=== PATIENT | female | born 1950 | race Caucasian/White ===

== ENCOUNTER 2020-10-05 12:10 | Inpatient (IN) ==
[2020-10-05] MEDS ORDERED: methylPREDNISolone SOD SUC 125 MG/2 ML VIAL IV STA (12:21)
[2020-10-05] MEDS ORDERED: ALBUTEROL 2.5 MG/3 ML NEB RESP TX STA ×2 (12:21→13:15)
[2020-10-05 12:34] LABS: ABG Base Excess 10.6 MMOL/L (-2.5-2.5); ABG HCO3 34.4 MMOL/L (20-26); ABG PH 7.354 (7.35-7.45); ABG TCO2 34.9 MMOL/L (23-27)
[2020-10-05 12:44] LABS: Basophils % 0.2 % (0.0-0.8); Eosinophils % 0.2 % (0.00-10.9); Hematocrit 42.2 VOL% (35.7-47.0); Hemoglobin 12.8 GM/DL (12.0-16.0); Lymphocytes # 0.4 10*3/uL (1.4-4.0); Lymphocytes % 3.9 % (21.3-54.2); Mean Corpuscular HGB Conc 30.3 GM/DL (32-36); Mean Corpuscular Volume 88.8 FL (87-102); Mean Platelet Volume 9.4 FL (9.6-12.0); Monocytes % 6.9 % (1.7-12.7); Neutrophils % 87.8 % (38.7-73.9); Platelet Count 322 T/CUMM (130-400); Red Blood Count 4.75 MC/CUMM (3.8-5.5); Red Cell Distribution Width 13.3 % (9.3-17.3); White Blood Count 9.6 T/CUMM (4-12)
[2020-10-05 13:01] LABS: Albumin 2.8 G/DL (3.4-5.0); Bilirubin,Total 0.5 MG/DL (0.20-1.00); Calcium 8.9 MG/DL (8.5-10.1); Osmolality,Calculated 269.5 MOS/KG (273-304); Potassium 4.2 MMOL/L (3.5-5.1); Total Protein 5.9 G/DL (6.4-8.2)
[2020-10-05 13:08] LABS: Band Neutrophils 27 % (0-10); Lymphocytes 4 % (20-55); Platelet Estimate Normal; Segmented Neutrophils 59 % (50-85); Total Cells Counted 100
[2020-10-05 13:09] LABS: Anisocytosis 1+
[2020-10-05] MEDS ORDERED: cefTRIAXone 1,000 MG in SODIUM CHLORIDE 0.9% 100 ML IV STA (13:14)
[2020-10-05] MEDS ORDERED: AZITHROMYCIN INJ 500 MG in SODIUM CHLORIDE 0.9% 250 ML IV STA (13:14)
[2020-10-05 14:13] LABS: ABG Base Excess 12.4 MMOL/L (-2.5-2.5); ABG Oxygen Saturation 88.3 % (95-100); ABG PCO2 65.4 MM HG (35-48); ABG PH 7.399 (7.35-7.45); ABG PO2 55.5 MM HG (80-95); ABG TCO2 35.8 MMOL/L (23-27)
[2020-10-05] MEDS ORDERED: ACETAMINOPHEN 325 MG TABLET PO PRN (16:38)
[2020-10-05] MEDS ORDERED: ONDANSETRON 4 MG/2 ML VIAL IV PRN (16:38)
[2020-10-05] MEDS ORDERED: AZITHROMYCIN INJ 500 MG in SODIUM CHLORIDE 0.9% 250 ML IV SCH (17:00)
[2020-10-05] MEDS ORDERED: cefTRIAXone 1,000 MG in SODIUM CHLORIDE 0.9% 100 ML IV SCH (17:00)
[2020-10-05] MEDS: BUDESONIDE 0.5 MG/2 ML NEB RESP TX SCH (19:39)
[2020-10-05] MEDS: DOCUSATE SODIUM 100 MG CAPSULE PO SCH (21:51)
[2020-10-05] MEDS: methylPREDNISolone SOD SUC 40 MG/1 ML VIAL IV SCH (21:52)
[2020-10-06] MEDS: LEVOTHYROXINE 50 MCG TABLET PO SCH (05:39)
[2020-10-06] MEDS: methylPREDNISolone SOD SUC 40 MG/1 ML VIAL IV SCH ×3 (05:39→21:36)
[2020-10-06 06:04] LABS: Basophils % 0.3 % (0.0-0.8); Hematocrit 39.2 VOL% (35.7-47.0); Hemoglobin 12.1 GM/DL (12.0-16.0); Immature Granulocytes Absolute 0.07 #; Lymphocytes # 0.3 10*3/uL (1.4-4.0); Lymphocytes % 4.4 % (21.3-54.2); Mean Corpuscular HGB Conc 30.9 GM/DL (32-36); Mean Corpuscular Volume 87.7 FL (87-102); Mean Platelet Volume 9.6 FL (9.6-12.0); Monocytes % 2.8 % (1.7-12.7); NRBC # 0.02 10*3/uL; Neutrophils % 91.5 % (38.7-73.9); Platelet Count 287 T/CUMM (130-400); Red Blood Count 4.47 MC/CUMM (3.8-5.5); Red Cell Distribution Width 13.2 % (9.3-17.3); White Blood Count 6.9 T/CUMM (4-12)
[2020-10-06 06:41] LABS: Albumin 2.5 G/DL (3.4-5.0); Bilirubin,Total 0.4 MG/DL (0.20-1.00); Calcium 9.3 MG/DL (8.5-10.1); Potassium 3.7 MMOL/L (3.5-5.1); Total Protein 6.2 G/DL (6.4-8.2)
[2020-10-06] MEDS: BUDESONIDE 0.5 MG/2 ML NEB RESP TX SCH ×2 (07:40→19:22)
[2020-10-06 08:00] LABS: Band Neutrophils 6 % (0-10); Hypochromasia 1+; Lymphocytes 7 % (20-55); Nucleated Red Blood Cells 1 (0-5); Platelet Estimate Normal; Segmented Neutrophils 83 % (50-85); Total Cells Counted 100
[2020-10-06] MEDS ORDERED: FUROSEMIDE 40 MG TABLET PO SCH (09:00)
[2020-10-06] MEDS: PANTOPRAZOLE 40 MG TABLET PO SCH (09:11)
[2020-10-06] MEDS: amLODIPine 5 MG TABLET PO SCH (09:12)
[2020-10-06] MEDS: ASPIRIN 325 MG TABLET PO SCH (09:12)
[2020-10-06] MEDS: ESCITALOPRAM 10 MG TABLET PO SCH (09:14)
[2020-10-06] MEDS: THEOPHYLLINE ER 300 MG TABLET PO SCH (09:18)
[2020-10-06] MEDS: DOCUSATE SODIUM 100 MG CAPSULE PO SCH ×2 (09:18→21:35)
[2020-10-06] MEDS: CHOLESTYRAMINE 4 GM PACK PO SCH (09:32)
[2020-10-06] MEDS ORDERED: ALBUTEROL/IPRATROPIUM 3 ML NEB RESP TX PRN (10:02)
[2020-10-06] MEDS ORDERED: IPRATROPIUM 500 MCG/2.5 ML NEB RESP TX SCH (11:00)
[2020-10-06] MEDS: FUROSEMIDE 20 MG TABLET PO SCH (11:15)
[2020-10-06] MEDS: POTASSIUM CHLORIDE 20 MEQ TABLET PO SCH (11:16)
[2020-10-06] MEDS: ALBUTEROL/IPRATROPIUM 3 ML NEB RESP TX SCH ×2 (11:49→19:22)
[2020-10-06] MEDS: cefTRIAXone 1,000 MG in SODIUM CHLORIDE 0.9% 100 ML IV SCH (14:19)
[2020-10-06] MEDS: ALPRAZolam 0.25 MG TABLET PO PRN (14:21)
[2020-10-06] MEDS: AZITHROMYCIN INJ 500 MG in SODIUM CHLORIDE 0.9% 250 ML IV SCH (15:23)
[2020-10-06] MEDS ORDERED: THEOPHYLLINE ER 300 MG TABLET PO SCH (21:00)
[2020-10-06] MEDS: MONTELUKAST 10 MG TABLET PO SCH (21:36)
[2020-10-06] MEDS: DESVENLAFAXINE 50 MG TABLET PO SCH (21:36)
[2020-10-07] MEDS: ALPRAZolam 0.25 MG TABLET PO PRN ×3 (00:08→23:50)
[2020-10-07] MEDS: ALBUTEROL/IPRATROPIUM 3 ML NEB RESP TX SCH ×4 (00:08→19:43)
[2020-10-07] MEDS: LEVOTHYROXINE 50 MCG TABLET PO SCH (06:15)
[2020-10-07] MEDS ORDERED: LEVOTHYROXINE 75 MCG TABLET PO SCH (06:30)
[2020-10-07 06:50] LABS: Basophils % 0.2 % (0.0-0.8); Hematocrit 40.7 VOL% (35.7-47.0); Hemoglobin 12.3 GM/DL (12.0-16.0); Immature Granulocytes % 1.3 %; Immature Granulocytes Absolute 0.13 #; Lymphocytes # 0.4 10*3/uL (1.4-4.0); Mean Corpuscular HGB Conc 30.2 GM/DL (32-36); Mean Corpuscular Volume 88.3 FL (87-102); Monocytes % 3.3 % (1.7-12.7); NRBC # 0.02 10*3/uL; Neutrophils % 91.2 % (38.7-73.9); Platelet Count 293 T/CUMM (130-400); Red Blood Count 4.61 MC/CUMM (3.8-5.5); Red Cell Distribution Width 13.3 % (9.3-17.3); White Blood Count 10.3 T/CUMM (4-12)
[2020-10-07 06:59] LABS: Calcium 8.6 MG/DL (8.5-10.1); Osmolality,Calculated 280.5 MOS/KG (273-304); Potassium 4.6 MMOL/L (3.5-5.1)
[2020-10-07] MEDS: BUDESONIDE 0.5 MG/2 ML NEB RESP TX SCH ×2 (07:30→19:43)
[2020-10-07] MEDS ORDERED: NON-FORMULARY MEDICATION (Esomeprazole Magnesium 40 mg capsule,delayed release(DR/EC)) PO SCH (09:00)
[2020-10-07] MEDS ORDERED: METHYLPREDNISOLONE 8 MG PO SCH (09:00)
[2020-10-07] MEDS: methylPREDNISolone SOD SUC 40 MG/1 ML VIAL IV SCH ×2 (09:32→17:51)
[2020-10-07] MEDS: hydroCHLOROthiazide 12.5 MG CAPSULE PO SCH (09:33)
[2020-10-07] MEDS: ASPIRIN 325 MG TABLET PO SCH (09:33)
[2020-10-07] MEDS: ATORVASTATIN 10 MG TABLET PO SCH (09:34)
[2020-10-07] MEDS: POTASSIUM CHLORIDE 20 MEQ TABLET PO SCH (09:35)
[2020-10-07] MEDS: NEBIVOLOL 5 MG TABLET PO SCH (09:35)
[2020-10-07] MEDS: DOCUSATE SODIUM 100 MG CAPSULE PO SCH ×2 (09:35→20:07)
[2020-10-07] MEDS: FUROSEMIDE 20 MG TABLET PO SCH (09:36)
[2020-10-07] MEDS: ESCITALOPRAM 10 MG TABLET PO SCH (09:37)
[2020-10-07] MEDS: MONTELUKAST 10 MG TABLET PO SCH ×2 (09:38→20:07)
[2020-10-07] MEDS: THEOPHYLLINE ER 300 MG TABLET PO SCH (09:38)
[2020-10-07] MEDS: amLODIPine 5 MG TABLET PO SCH (09:39)
[2020-10-07] MEDS: NICOTINE 14 MG/24 HR PATCH TRANSDERM SCH (09:50)
[2020-10-07] MEDS: PANTOPRAZOLE 40 MG TABLET PO SCH (09:51)
[2020-10-07] MEDS: CHOLESTYRAMINE 4 GM PACK PO SCH (09:51)
[2020-10-07] MEDS: AZELASTINE NASAL 137 MCG/SPRAY 30 ML BOTTLE BOTH NARES SCH (09:59)
[2020-10-07 12:05] LABS: Lymphocytes 6 % (20-55); Platelet Estimate Normal; Polychromasia Slight; Segmented Neutrophils 94 % (50-85); Total Cells Counted 100
[2020-10-07] MEDS: NYSTATIN 500,000 UNIT/5 ML UDCUP SWISH/SWAL SCH ×3 (14:21→21:10)
[2020-10-07] MEDS: cefTRIAXone 1,000 MG in SODIUM CHLORIDE 0.9% 100 ML IV SCH (14:21)
[2020-10-07] MEDS: AZITHROMYCIN INJ 500 MG in SODIUM CHLORIDE 0.9% 250 ML IV SCH (15:05)
[2020-10-07] MEDS: DESVENLAFAXINE 50 MG TABLET PO SCH (20:07)
[2020-10-07] MEDS ORDERED: BISACODYL 10 MG SUPP RECTAL ONE (21:32)
[2020-10-08] MEDS: ALBUTEROL/IPRATROPIUM 3 ML NEB RESP TX SCH ×4 (00:20→20:18)
[2020-10-08] MEDS: ARFORMOTEROL 15 MCG/2 ML NEB RESP TX SCH ×3 (00:20→20:18)
[2020-10-08] MEDS: ACETYLCYSTEINE 20% 800 MG/4 ML VIAL RESP TX SCH ×3 (00:20→14:28)
[2020-10-08] MEDS: methylPREDNISolone SOD SUC 40 MG/1 ML VIAL IV SCH ×3 (02:09→18:05)
[2020-10-08] MEDS ORDERED: LEVOTHYROXINE 50 MCG TABLET PO SCH (06:30)
[2020-10-08 06:40] LABS: Basophils % 0.3 % (0.0-0.8); Hematocrit 42.7 VOL% (35.7-47.0); Hemoglobin 13.1 GM/DL (12.0-16.0); Immature Granulocytes % 2.2 %; Lymphocytes # 0.4 10*3/uL (1.4-4.0); Lymphocytes % 4.2 % (21.3-54.2); Mean Corpuscular HGB Conc 30.7 GM/DL (32-36); Mean Corpuscular Volume 89.3 FL (87-102); Mean Platelet Volume 8.8 FL (9.6-12.0); Monocytes % 3.1 % (1.7-12.7); NRBC # 0.03 10*3/uL; Neutrophils % 90.2 % (38.7-73.9); Platelet Count 305 T/CUMM (130-400); Red Blood Count 4.78 MC/CUMM (3.8-5.5); Red Cell Distribution Width 13.2 % (9.3-17.3)
[2020-10-08 06:59] LABS: Calcium 8.8 MG/DL (8.5-10.1); Osmolality,Calculated 276.8 MOS/KG (273-304)
[2020-10-08 07:06] LABS: Band Neutrophils 2 % (0-10); Lymphocytes 4 % (20-55); Nucleated Red Blood Cells 1 (0-5); Platelet Estimate Normal; Segmented Neutrophils 92 % (50-85); Total Cells Counted 100
[2020-10-08] MEDS: ASPIRIN 325 MG TABLET PO SCH (08:55)
[2020-10-08] MEDS: DOCUSATE SODIUM 100 MG CAPSULE PO SCH ×2 (08:55→21:22)
[2020-10-08] MEDS: FUROSEMIDE 20 MG TABLET PO SCH (08:55)
[2020-10-08] MEDS: ATORVASTATIN 10 MG TABLET PO SCH (08:56)
[2020-10-08] MEDS: THEOPHYLLINE ER 300 MG TABLET PO SCH (08:57)
[2020-10-08] MEDS: ESCITALOPRAM 10 MG TABLET PO SCH (08:57)
[2020-10-08] MEDS: LEVOTHYROXINE 50 MCG TABLET PO SCH (08:58)
[2020-10-08] MEDS: NEBIVOLOL 5 MG TABLET PO SCH (08:58)
[2020-10-08] MEDS: amLODIPine 5 MG TABLET PO SCH (08:59)
[2020-10-08] MEDS: POTASSIUM CHLORIDE 20 MEQ TABLET PO SCH (08:59)
[2020-10-08] MEDS: PANTOPRAZOLE 40 MG TABLET PO SCH (08:59)
[2020-10-08] MEDS: MONTELUKAST 10 MG TABLET PO SCH ×2 (08:59→21:21)
[2020-10-08] MEDS: hydroCHLOROthiazide 12.5 MG CAPSULE PO SCH (09:00)
[2020-10-08] MEDS: CHOLESTYRAMINE 4 GM PACK PO SCH (09:00)
[2020-10-08] MEDS: NYSTATIN 500,000 UNIT/5 ML UDCUP SWISH/SWAL SCH ×4 (09:02→21:21)
[2020-10-08] MEDS: NICOTINE 14 MG/24 HR PATCH TRANSDERM SCH (09:02)
[2020-10-08] MEDS: ZINC OXIDE PASTE 113 GM TUBE TOP SCH ×2 (10:30→19:02)
[2020-10-08] MEDS: cefTRIAXone 1,000 MG in SODIUM CHLORIDE 0.9% 100 ML IV SCH (14:20)
[2020-10-08] MEDS: BUDESONIDE 0.5 MG/2 ML NEB RESP TX SCH ×2 (14:28→20:18)
[2020-10-08] MEDS: AZITHROMYCIN INJ 500 MG in SODIUM CHLORIDE 0.9% 250 ML IV SCH (15:24)
[2020-10-08] MEDS: AZELASTINE NASAL 137 MCG/SPRAY 30 ML BOTTLE BOTH NARES SCH (18:00)
[2020-10-08] MEDS: DESVENLAFAXINE 50 MG TABLET PO SCH (21:21)
[2020-10-08] MEDS: ALPRAZolam 0.25 MG TABLET PO PRN (21:22)
[2020-10-09] MEDS: ALBUTEROL/IPRATROPIUM 3 ML NEB RESP TX SCH ×4 (01:58→19:30)
[2020-10-09] MEDS: ACETYLCYSTEINE 20% 800 MG/4 ML VIAL RESP TX SCH ×3 (01:58→14:03)
[2020-10-09] MEDS: methylPREDNISolone SOD SUC 40 MG/1 ML VIAL IV SCH ×3 (02:40→13:16)
[2020-10-09 05:38] LABS: Basophils % 0.3 % (0.0-0.8); Hematocrit 41.2 VOL% (35.7-47.0); Hemoglobin 12.5 GM/DL (12.0-16.0); Immature Granulocytes % 2.7 %; Immature Granulocytes Absolute 0.21 #; Lymphocytes # 0.4 10*3/uL (1.4-4.0); Lymphocytes % 5.4 % (21.3-54.2); Mean Corpuscular HGB Conc 30.3 GM/DL (32-36); Mean Corpuscular Volume 88.6 FL (87-102); Mean Platelet Volume 8.9 FL (9.6-12.0); Monocytes % 3.7 % (1.7-12.7); Neutrophils % 87.9 % (38.7-73.9); Platelet Count 286 T/CUMM (130-400); Red Blood Count 4.65 MC/CUMM (3.8-5.5); Red Cell Distribution Width 13.1 % (9.3-17.3); White Blood Count 7.9 T/CUMM (4-12)
[2020-10-09 06:05] LABS: Calcium 8.5 MG/DL (8.5-10.1); Osmolality,Calculated 283.3 MOS/KG (273-304)
[2020-10-09] MEDS: ARFORMOTEROL 15 MCG/2 ML NEB RESP TX SCH ×2 (07:15→19:30)
[2020-10-09] MEDS: BUDESONIDE 0.5 MG/2 ML NEB RESP TX SCH ×2 (07:15→19:30)
[2020-10-09] MEDS: ASPIRIN 325 MG TABLET PO SCH (08:21)
[2020-10-09] MEDS: amLODIPine 5 MG TABLET PO SCH (08:22)
[2020-10-09] MEDS: PANTOPRAZOLE 40 MG TABLET PO SCH (08:22)
[2020-10-09] MEDS: hydroCHLOROthiazide 12.5 MG CAPSULE PO SCH (08:23)
[2020-10-09] MEDS: POTASSIUM CHLORIDE 20 MEQ TABLET PO SCH (08:23)
[2020-10-09] MEDS: FUROSEMIDE 20 MG TABLET PO SCH (08:23)
[2020-10-09] MEDS: DOCUSATE SODIUM 100 MG CAPSULE PO SCH ×2 (08:23→21:29)
[2020-10-09] MEDS: NEBIVOLOL 5 MG TABLET PO SCH (08:23)
[2020-10-09] MEDS: ESCITALOPRAM 10 MG TABLET PO SCH (08:24)
[2020-10-09] MEDS: NYSTATIN 500,000 UNIT/5 ML UDCUP SWISH/SWAL SCH ×4 (08:24→21:28)
[2020-10-09] MEDS: NICOTINE 14 MG/24 HR PATCH TRANSDERM SCH (08:24)
[2020-10-09] MEDS: ATORVASTATIN 10 MG TABLET PO SCH (08:24)
[2020-10-09] MEDS: LEVOTHYROXINE 50 MCG TABLET PO SCH (08:25)
[2020-10-09] MEDS: ALPRAZolam 0.25 MG TABLET PO PRN ×3 (08:25→21:28)
[2020-10-09] MEDS: MONTELUKAST 10 MG TABLET PO SCH ×2 (08:25→21:28)
[2020-10-09] MEDS: CHOLESTYRAMINE 4 GM PACK PO SCH (08:25)
[2020-10-09] MEDS: THEOPHYLLINE ER 300 MG TABLET PO SCH (08:25)
[2020-10-09] MEDS: AZELASTINE NASAL 137 MCG/SPRAY 30 ML BOTTLE BOTH NARES SCH (10:06)
[2020-10-09] MEDS: ZINC OXIDE PASTE 113 GM TUBE TOP SCH ×2 (10:07→20:20)
[2020-10-09 10:32] LABS: ABG Base Excess 12.4 MMOL/L (-2.5-2.5); ABG Oxygen Saturation 95.5 % (95-100); ABG PCO2 65.7 MM HG (35-48); ABG PH 7.402 (7.35-7.45); ABG PO2 79.3 MM HG (80-95)
[2020-10-09] MEDS: ENOXAPARIN 40 MG/0.4 ML SYRINGE SUBCUT SCH (11:16)
[2020-10-09] MEDS: cefTRIAXone 1,000 MG in SODIUM CHLORIDE 0.9% 100 ML IV SCH (13:21)
[2020-10-09] MEDS: AZITHROMYCIN INJ 500 MG in SODIUM CHLORIDE 0.9% 250 ML IV SCH (17:07)
[2020-10-09] MEDS: DESVENLAFAXINE 50 MG TABLET PO SCH (21:29)
[2020-10-10] MEDS: ACETYLCYSTEINE 20% 800 MG/4 ML VIAL RESP TX SCH ×4 (00:05→23:41)
[2020-10-10] MEDS: ALBUTEROL/IPRATROPIUM 3 ML NEB RESP TX SCH ×5 (00:05→23:41)
[2020-10-10] MEDS: methylPREDNISolone SOD SUC 40 MG/1 ML VIAL IV SCH ×2 (02:21→14:34)
[2020-10-10] MEDS: ARFORMOTEROL 15 MCG/2 ML NEB RESP TX SCH ×2 (07:40→19:41)
[2020-10-10] MEDS: BUDESONIDE 0.5 MG/2 ML NEB RESP TX SCH ×2 (07:40→19:41)
[2020-10-10] MEDS: ZINC OXIDE PASTE 113 GM TUBE TOP SCH ×2 (09:00→21:50)
[2020-10-10] MEDS: AZELASTINE NASAL 137 MCG/SPRAY 30 ML BOTTLE BOTH NARES SCH (09:01)
[2020-10-10] MEDS: PANTOPRAZOLE 40 MG TABLET PO SCH (09:03)
[2020-10-10] MEDS: amLODIPine 5 MG TABLET PO SCH (09:03)
[2020-10-10] MEDS: FUROSEMIDE 20 MG TABLET PO SCH (09:03)
[2020-10-10] MEDS: DOCUSATE SODIUM 100 MG CAPSULE PO SCH ×2 (09:03→21:50)
[2020-10-10] MEDS: NEBIVOLOL 5 MG TABLET PO SCH (09:03)
[2020-10-10] MEDS: LEVOTHYROXINE 50 MCG TABLET PO SCH (09:03)
[2020-10-10] MEDS: MONTELUKAST 10 MG TABLET PO SCH ×2 (09:04→21:50)
[2020-10-10] MEDS: THEOPHYLLINE ER 300 MG TABLET PO SCH (09:04)
[2020-10-10] MEDS: ATORVASTATIN 10 MG TABLET PO SCH (09:04)
[2020-10-10] MEDS: NICOTINE 14 MG/24 HR PATCH TRANSDERM SCH (09:04)
[2020-10-10] MEDS: POTASSIUM CHLORIDE 20 MEQ TABLET PO SCH (09:04)
[2020-10-10] MEDS: hydroCHLOROthiazide 12.5 MG CAPSULE PO SCH (09:04)
[2020-10-10] MEDS: ASPIRIN 325 MG TABLET PO SCH (09:04)
[2020-10-10] MEDS: CHOLESTYRAMINE 4 GM PACK PO SCH (09:05)
[2020-10-10] MEDS: NYSTATIN 500,000 UNIT/5 ML UDCUP SWISH/SWAL SCH ×4 (09:05→21:50)
[2020-10-10] MEDS: ESCITALOPRAM 10 MG TABLET PO SCH (09:29)
[2020-10-10] MEDS: ALPRAZolam 0.25 MG TABLET PO PRN ×2 (10:29→21:50)
[2020-10-10] MEDS: ENOXAPARIN 40 MG/0.4 ML SYRINGE SUBCUT SCH (10:30)
[2020-10-10] MEDS: cefTRIAXone 1,000 MG in SODIUM CHLORIDE 0.9% 100 ML IV SCH (14:39)
[2020-10-10] MEDS: AZITHROMYCIN INJ 500 MG in SODIUM CHLORIDE 0.9% 250 ML IV SCH (15:20)
[2020-10-10] MEDS: DESVENLAFAXINE 50 MG TABLET PO SCH (21:50)
[2020-10-11] MEDS: methylPREDNISolone SOD SUC 40 MG/1 ML VIAL IV SCH ×2 (01:47→21:14)
[2020-10-11 06:44] LABS: Basophils # 0.1 10*3/uL (0.0-0.2); Basophils % 0.6 % (0.0-0.8); Hematocrit 44.4 VOL% (35.7-47.0); Hemoglobin 13.5 GM/DL (12.0-16.0); Immature Granulocytes % 4.2 %; Immature Granulocytes Absolute 0.34 #; Lymphocytes # 0.4 10*3/uL (1.4-4.0); Lymphocytes % 5.3 % (21.3-54.2); Mean Corpuscular HGB Conc 30.4 GM/DL (32-36); Mean Corpuscular Volume 89.3 FL (87-102); Mean Platelet Volume 9.1 FL (9.6-12.0); Monocytes % 4.8 % (1.7-12.7); NRBC # 0.03 10*3/uL; Neutrophils % 85.1 % (38.7-73.9); Platelet Count 288 T/CUMM (130-400); Red Blood Count 4.97 MC/CUMM (3.8-5.5); Red Cell Distribution Width 13.3 % (9.3-17.3); White Blood Count 8.1 T/CUMM (4-12)
[2020-10-11 06:47] LABS: Calcium 8.6 MG/DL (8.5-10.1); Osmolality,Calculated 280.4 MOS/KG (273-304); Potassium 3.6 MMOL/L (3.5-5.1)
[2020-10-11] MEDS: ALBUTEROL/IPRATROPIUM 3 ML NEB RESP TX SCH ×3 (07:06→19:08)
[2020-10-11] MEDS: ACETYLCYSTEINE 20% 800 MG/4 ML VIAL RESP TX SCH ×2 (07:06→12:31)
[2020-10-11] MEDS: BUDESONIDE 0.5 MG/2 ML NEB RESP TX SCH ×2 (07:06→19:08)
[2020-10-11] MEDS: ARFORMOTEROL 15 MCG/2 ML NEB RESP TX SCH ×2 (07:06→19:08)
[2020-10-11] MEDS ORDERED: ENOXAPARIN 30 MG/0.3 ML SYRINGE SUBCUT SCH (10:00)
[2020-10-11] MEDS: CHOLESTYRAMINE 4 GM PACK PO SCH (10:04)
[2020-10-11] MEDS: NYSTATIN 500,000 UNIT/5 ML UDCUP SWISH/SWAL SCH ×4 (10:04→21:15)
[2020-10-11] MEDS: LEVOTHYROXINE 50 MCG TABLET PO SCH (10:05)
[2020-10-11] MEDS: ASPIRIN 325 MG TABLET PO SCH (10:05)
[2020-10-11] MEDS: ESCITALOPRAM 10 MG TABLET PO SCH (10:05)
[2020-10-11] MEDS: DOCUSATE SODIUM 100 MG CAPSULE PO SCH ×2 (10:06→21:16)
[2020-10-11] MEDS: amLODIPine 5 MG TABLET PO SCH (10:06)
[2020-10-11] MEDS: MONTELUKAST 10 MG TABLET PO SCH ×2 (10:06→21:16)
[2020-10-11] MEDS: POTASSIUM CHLORIDE 20 MEQ TABLET PO SCH (10:06)
[2020-10-11] MEDS: PANTOPRAZOLE 40 MG TABLET PO SCH (10:07)
[2020-10-11] MEDS: FUROSEMIDE 20 MG TABLET PO SCH (10:07)
[2020-10-11] MEDS: NEBIVOLOL 5 MG TABLET PO SCH (10:07)
[2020-10-11] MEDS: hydroCHLOROthiazide 12.5 MG CAPSULE PO SCH (10:07)
[2020-10-11] MEDS: ATORVASTATIN 10 MG TABLET PO SCH (10:07)
[2020-10-11 10:14] LABS: ABG Base Excess 12.1 MMOL/L (-2.5-2.5); ABG HCO3 35.8 MMOL/L (20-26); ABG Oxygen Saturation 94.3 % (95-100); ABG PCO2 65.7 MM HG (35-48); ABG PH 7.397 (7.35-7.45); ABG PO2 70.8 MM HG (80-95); ABG TCO2 35.2 MMOL/L (23-27)
[2020-10-11] MEDS: AZELASTINE NASAL 137 MCG/SPRAY 30 ML BOTTLE BOTH NARES SCH (10:14)
[2020-10-11] MEDS: NICOTINE 14 MG/24 HR PATCH TRANSDERM SCH (10:23)
[2020-10-11] MEDS: ZINC OXIDE PASTE 113 GM TUBE TOP SCH ×2 (10:26→22:25)
[2020-10-11] MEDS: THEOPHYLLINE ER 300 MG TABLET PO SCH ×2 (10:39→16:51)
[2020-10-11] MEDS: cefTRIAXone 1,000 MG in SODIUM CHLORIDE 0.9% 100 ML IV SCH (13:58)
[2020-10-11] MEDS: DESVENLAFAXINE 50 MG TABLET PO SCH (21:15)
[2020-10-11] MEDS: ALPRAZolam 0.25 MG TABLET PO PRN (21:55)
[2020-10-12] MEDS: ACETYLCYSTEINE 20% 800 MG/4 ML VIAL RESP TX SCH ×4 (00:33→23:26)
[2020-10-12] MEDS: ALBUTEROL/IPRATROPIUM 3 ML NEB RESP TX SCH ×5 (00:33→23:26)
[2020-10-12 06:08] LABS: Basophils % 0.6 % (0.0-0.8); Hemoglobin 13.1 GM/DL (12.0-16.0); Immature Granulocytes % 4.6 %; Immature Granulocytes Absolute 0.33 #; Lymphocytes # 0.3 10*3/uL (1.4-4.0); Lymphocytes % 4.5 % (21.3-54.2); Mean Corpuscular HGB Conc 30.5 GM/DL (32-36); Mean Corpuscular Volume 89.8 FL (87-102); Mean Platelet Volume 9.2 FL (9.6-12.0); Monocytes % 2.7 % (1.7-12.7); Neutrophils % 87.6 % (38.7-73.9); Platelet Count 262 T/CUMM (130-400); Red Blood Count 4.79 MC/CUMM (3.8-5.5); Red Cell Distribution Width 13.4 % (9.3-17.3); White Blood Count 7.1 T/CUMM (4-12)
[2020-10-12 06:34] LABS: Anisocytosis 1+; Band Neutrophils 22 % (0-10); Basophilic Stippling Slight; Lymphocytes 4 % (20-55); Macrocytosis 1+; Platelet Estimate Normal; Segmented Neutrophils 74 % (50-85); Total Cells Counted 100
[2020-10-12 06:35] LABS: Calcium 8.3 MG/DL (8.5-10.1); Osmolality,Calculated 277.7 MOS/KG (273-304); Potassium 3.3 MMOL/L (3.5-5.1); Stomatocytes Few
[2020-10-12] MEDS: BUDESONIDE 0.5 MG/2 ML NEB RESP TX SCH ×2 (07:20→19:40)
[2020-10-12] MEDS: ASPIRIN 325 MG TABLET PO SCH (08:54)
[2020-10-12] MEDS: ATORVASTATIN 10 MG TABLET PO SCH (08:54)
[2020-10-12] MEDS: NEBIVOLOL 5 MG TABLET PO SCH (08:54)
[2020-10-12] MEDS: NYSTATIN 500,000 UNIT/5 ML UDCUP SWISH/SWAL SCH ×4 (08:54→21:10)
[2020-10-12] MEDS: NICOTINE 14 MG/24 HR PATCH TRANSDERM SCH (08:55)
[2020-10-12] MEDS: DOCUSATE SODIUM 100 MG CAPSULE PO SCH ×2 (08:55→21:10)
[2020-10-12] MEDS: LEVOTHYROXINE 50 MCG TABLET PO SCH (08:55)
[2020-10-12] MEDS: MONTELUKAST 10 MG TABLET PO SCH ×2 (08:55→21:10)
[2020-10-12] MEDS: POTASSIUM CHLORIDE 20 MEQ TABLET PO SCH (08:55)
[2020-10-12] MEDS: hydroCHLOROthiazide 12.5 MG CAPSULE PO SCH (08:55)
[2020-10-12] MEDS: ESCITALOPRAM 10 MG TABLET PO SCH (08:56)
[2020-10-12] MEDS: THEOPHYLLINE ER 300 MG TABLET PO SCH ×2 (08:56→17:21)
[2020-10-12] MEDS: FUROSEMIDE 20 MG TABLET PO SCH (08:56)
[2020-10-12] MEDS: PANTOPRAZOLE 40 MG TABLET PO SCH (08:56)
[2020-10-12] MEDS: amLODIPine 5 MG TABLET PO SCH (08:56)
[2020-10-12] MEDS: methylPREDNISolone SOD SUC 40 MG/1 ML VIAL IV SCH ×2 (08:57→21:08)
[2020-10-12] MEDS: ENOXAPARIN 40 MG/0.4 ML SYRINGE SUBCUT SCH (08:57)
[2020-10-12] MEDS: CHOLESTYRAMINE 4 GM PACK PO SCH ×2 (08:57→09:14)
[2020-10-12] MEDS: AZELASTINE NASAL 137 MCG/SPRAY 30 ML BOTTLE BOTH NARES SCH (08:58)
[2020-10-12] MEDS: cefTRIAXone 1,000 MG in SODIUM CHLORIDE 0.9% 100 ML IV SCH (08:58)
[2020-10-12] MEDS: ZINC OXIDE PASTE 113 GM TUBE TOP SCH ×2 (08:59→21:10)
[2020-10-12] MEDS: MEROPENEM 500 MG in SODIUM CHLORIDE 0.9% 100 ML IV SCH ×3 (12:04→21:08)
[2020-10-12] MEDS: ARFORMOTEROL 15 MCG/2 ML NEB RESP TX SCH ×2 (14:15→19:40)
[2020-10-12] MEDS: DESVENLAFAXINE 50 MG TABLET PO SCH (21:10)
[2020-10-12] MEDS: ALPRAZolam 0.25 MG TABLET PO PRN (21:10)
[2020-10-13] MEDS: MEROPENEM 500 MG in SODIUM CHLORIDE 0.9% 100 ML IV SCH ×4 (03:28→21:03)
[2020-10-13] MEDS: ALPRAZolam 0.25 MG TABLET PO PRN ×2 (05:05→21:08)
[2020-10-13] MEDS: ALBUTEROL/IPRATROPIUM 3 ML NEB RESP TX SCH ×3 (07:25→20:10)
[2020-10-13] MEDS: ACETYLCYSTEINE 20% 800 MG/4 ML VIAL RESP TX SCH ×2 (07:25→14:30)
[2020-10-13] MEDS: ARFORMOTEROL 15 MCG/2 ML NEB RESP TX SCH ×2 (07:25→20:25)
[2020-10-13] MEDS: BUDESONIDE 0.5 MG/2 ML NEB RESP TX SCH ×2 (07:25→20:10)
[2020-10-13 08:06] LABS: Basophils % 0.2 % (0.0-0.8); Hematocrit 42.6 VOL% (35.7-47.0); Immature Granulocytes % 3.1 %; Immature Granulocytes Absolute 0.29 #; Lymphocytes # 0.8 10*3/uL (1.4-4.0); Lymphocytes % 8.8 % (21.3-54.2); Mean Corpuscular HGB Conc 30.5 GM/DL (32-36); Mean Corpuscular Volume 87.5 FL (87-102); Monocytes % 6.1 % (1.7-12.7); Neutrophils % 81.8 % (38.7-73.9); Platelet Count 246 T/CUMM (130-400); Red Blood Count 4.87 MC/CUMM (3.8-5.5); Red Cell Distribution Width 13.2 % (9.3-17.3); White Blood Count 9.4 T/CUMM (4-12)
[2020-10-13 08:34] LABS: Calcium 8.6 MG/DL (8.5-10.1); Osmolality,Calculated 273.8 MOS/KG (273-304); Potassium 3.1 MMOL/L (3.5-5.1)
[2020-10-13] MEDS: amLODIPine 5 MG TABLET PO SCH (09:14)
[2020-10-13] MEDS: NICOTINE 14 MG/24 HR PATCH TRANSDERM SCH (09:14)
[2020-10-13] MEDS: LEVOTHYROXINE 50 MCG TABLET PO SCH (09:14)
[2020-10-13] MEDS: POTASSIUM CHLORIDE 20 MEQ TABLET PO PRN ×4 (09:15→15:17)
[2020-10-13] MEDS: ATORVASTATIN 10 MG TABLET PO SCH (09:15)
[2020-10-13] MEDS: ASPIRIN 325 MG TABLET PO SCH (09:15)
[2020-10-13] MEDS: CHOLESTYRAMINE 4 GM PACK PO SCH (09:15)
[2020-10-13] MEDS: NEBIVOLOL 5 MG TABLET PO SCH (09:15)
[2020-10-13] MEDS: POTASSIUM CHLORIDE 20 MEQ TABLET PO SCH (09:15)
[2020-10-13] MEDS: PANTOPRAZOLE 40 MG TABLET PO SCH (09:16)
[2020-10-13] MEDS: ESCITALOPRAM 10 MG TABLET PO SCH (09:16)
[2020-10-13] MEDS: DOCUSATE SODIUM 100 MG CAPSULE PO SCH ×2 (09:16→21:07)
[2020-10-13] MEDS: NYSTATIN 500,000 UNIT/5 ML UDCUP SWISH/SWAL SCH ×4 (09:16→21:08)
[2020-10-13] MEDS: hydroCHLOROthiazide 12.5 MG CAPSULE PO SCH (09:16)
[2020-10-13] MEDS: THEOPHYLLINE ER 300 MG TABLET PO SCH ×2 (09:16→16:50)
[2020-10-13] MEDS: FUROSEMIDE 20 MG TABLET PO SCH (09:16)
[2020-10-13] MEDS: methylPREDNISolone SOD SUC 40 MG/1 ML VIAL IV SCH ×2 (09:16→21:04)
[2020-10-13] MEDS: ENOXAPARIN 40 MG/0.4 ML SYRINGE SUBCUT SCH (09:16)
[2020-10-13] MEDS: AZELASTINE NASAL 137 MCG/SPRAY 30 ML BOTTLE BOTH NARES SCH (09:24)
[2020-10-13] MEDS: ZINC OXIDE PASTE 113 GM TUBE TOP SCH ×2 (09:24→21:08)
[2020-10-13] MEDS: MONTELUKAST 10 MG TABLET PO SCH ×2 (09:24→21:08)
[2020-10-13] MEDS: DESVENLAFAXINE 50 MG TABLET PO SCH (21:07)
[2020-10-14] MEDS: ALBUTEROL/IPRATROPIUM 3 ML NEB RESP TX SCH ×5 (01:53→23:53)
[2020-10-14] MEDS: ACETYLCYSTEINE 20% 800 MG/4 ML VIAL RESP TX SCH ×4 (01:53→23:53)
[2020-10-14] MEDS: MEROPENEM 500 MG in SODIUM CHLORIDE 0.9% 100 ML IV SCH ×3 (03:47→16:42)
[2020-10-14 06:17] LABS: Basophils % 0.4 % (0.0-0.8); Hematocrit 41.4 VOL% (35.7-47.0); Hemoglobin 12.7 GM/DL (12.0-16.0); Immature Granulocytes % 3.5 %; Immature Granulocytes Absolute 0.32 #; Lymphocytes # 0.4 10*3/uL (1.4-4.0); Lymphocytes % 4.6 % (21.3-54.2); Mean Corpuscular HGB Conc 30.7 GM/DL (32-36); Mean Corpuscular Volume 89.4 FL (87-102); Mean Platelet Volume 9.6 FL (9.6-12.0); Monocytes % 3.5 % (1.7-12.7); Platelet Count 261 T/CUMM (130-400); Red Blood Count 4.63 MC/CUMM (3.8-5.5); Red Cell Distribution Width 13.4 % (9.3-17.3); White Blood Count 9.2 T/CUMM (4-12)
[2020-10-14 06:23] LABS: Calcium 8.2 MG/DL (8.5-10.1); Potassium 4.4 MMOL/L (3.5-5.1)
[2020-10-14 07:01] LABS: Hypochromasia Slight; Lymphocytes 1 % (20-55); Microcytosis Slight; Nucleated Red Blood Cells 1 (0-5); Platelet Estimate Adequate; Segmented Neutrophils 96 % (50-85); Total Cells Counted 100
[2020-10-14] MEDS: ARFORMOTEROL 15 MCG/2 ML NEB RESP TX SCH ×2 (07:22→19:30)
[2020-10-14] MEDS: BUDESONIDE 0.5 MG/2 ML NEB RESP TX SCH ×2 (07:22→19:30)
[2020-10-14] MEDS: ENOXAPARIN 40 MG/0.4 ML SYRINGE SUBCUT SCH (09:13)
[2020-10-14] MEDS: NYSTATIN 500,000 UNIT/5 ML UDCUP SWISH/SWAL SCH ×4 (09:13→21:27)
[2020-10-14] MEDS: NICOTINE 14 MG/24 HR PATCH TRANSDERM SCH (09:14)
[2020-10-14] MEDS: methylPREDNISolone SOD SUC 40 MG/1 ML VIAL IV SCH ×2 (09:14→21:27)
[2020-10-14] MEDS: CHOLESTYRAMINE 4 GM PACK PO SCH (09:14)
[2020-10-14] MEDS: MONTELUKAST 10 MG TABLET PO SCH ×2 (09:15→21:27)
[2020-10-14] MEDS: ASPIRIN 325 MG TABLET PO SCH (09:15)
[2020-10-14] MEDS: hydroCHLOROthiazide 12.5 MG CAPSULE PO SCH (09:15)
[2020-10-14] MEDS: amLODIPine 5 MG TABLET PO SCH (09:15)
[2020-10-14] MEDS: ESCITALOPRAM 10 MG TABLET PO SCH (09:15)
[2020-10-14] MEDS: FUROSEMIDE 20 MG TABLET PO SCH (09:15)
[2020-10-14] MEDS: POTASSIUM CHLORIDE 20 MEQ TABLET PO SCH (09:15)
[2020-10-14] MEDS: NEBIVOLOL 5 MG TABLET PO SCH (09:15)
[2020-10-14] MEDS: LEVOTHYROXINE 50 MCG TABLET PO SCH (09:15)
[2020-10-14] MEDS: DOCUSATE SODIUM 100 MG CAPSULE PO SCH ×2 (09:16→21:27)
[2020-10-14] MEDS: AZELASTINE NASAL 137 MCG/SPRAY 30 ML BOTTLE BOTH NARES SCH (09:16)
[2020-10-14] MEDS: THEOPHYLLINE ER 300 MG TABLET PO SCH ×2 (09:16→16:42)
[2020-10-14] MEDS: ATORVASTATIN 10 MG TABLET PO SCH (09:16)
[2020-10-14] MEDS: PANTOPRAZOLE 40 MG TABLET PO SCH (09:16)
[2020-10-14] MEDS: ZINC OXIDE PASTE 113 GM TUBE TOP SCH ×2 (10:20→23:03)
[2020-10-14] MEDS: DESVENLAFAXINE 50 MG TABLET PO SCH (21:26)
[2020-10-14] MEDS: ALPRAZolam 0.25 MG TABLET PO PRN (21:27)
[2020-10-15] MEDS: MEROPENEM 500 MG in SODIUM CHLORIDE 0.9% 100 ML IV SCH ×5 (01:54→22:14)
[2020-10-15 06:14] LABS: Basophils # 0.1 10*3/uL (0.0-0.2); Basophils % 0.5 % (0.0-0.8); Hematocrit 42.1 VOL% (35.7-47.0); Hemoglobin 13.1 GM/DL (12.0-16.0); Immature Granulocytes % 5.2 %; Immature Granulocytes Absolute 0.53 #; Lymphocytes # 0.5 10*3/uL (1.4-4.0); Lymphocytes % 4.4 % (21.3-54.2); Mean Corpuscular HGB Conc 31.1 GM/DL (32-36); Mean Corpuscular Volume 88.4 FL (87-102); Mean Platelet Volume 9.6 FL (9.6-12.0); Neutrophils % 86.9 % (38.7-73.9); Platelet Count 255 T/CUMM (130-400); Red Blood Count 4.76 MC/CUMM (3.8-5.5); Red Cell Distribution Width 13.4 % (9.3-17.3); White Blood Count 10.3 T/CUMM (4-12)
[2020-10-15 06:25] LABS: Hypochromasia Slight; Lymphocytes 4 % (20-55); Microcytosis Slight; Platelet Estimate Adequate; Segmented Neutrophils 93 % (50-85); Total Cells Counted 100
[2020-10-15 06:33] LABS: Calcium 8.2 MG/DL (8.5-10.1); Osmolality,Calculated 282.3 MOS/KG (273-304); Potassium 3.8 MMOL/L (3.5-5.1)
[2020-10-15] MEDS: ALBUTEROL/IPRATROPIUM 3 ML NEB RESP TX SCH ×3 (07:00→19:44)
[2020-10-15] MEDS: BUDESONIDE 0.5 MG/2 ML NEB RESP TX SCH ×2 (07:00→19:44)
[2020-10-15] MEDS: ARFORMOTEROL 15 MCG/2 ML NEB RESP TX SCH ×2 (07:00→19:44)
[2020-10-15] MEDS: ACETYLCYSTEINE 20% 800 MG/4 ML VIAL RESP TX SCH ×2 (07:00→14:00)
[2020-10-15] MEDS: hydroCHLOROthiazide 12.5 MG CAPSULE PO SCH (10:45)
[2020-10-15] MEDS: MONTELUKAST 10 MG TABLET PO SCH ×2 (10:46→22:16)
[2020-10-15] MEDS: ASPIRIN 325 MG TABLET PO SCH (10:46)
[2020-10-15] MEDS: DOCUSATE SODIUM 100 MG CAPSULE PO SCH ×2 (10:47→22:16)
[2020-10-15] MEDS: THEOPHYLLINE ER 300 MG TABLET PO SCH ×2 (10:47→17:14)
[2020-10-15] MEDS: POTASSIUM CHLORIDE 20 MEQ TABLET PO SCH (10:47)
[2020-10-15] MEDS: ATORVASTATIN 10 MG TABLET PO SCH (10:47)
[2020-10-15] MEDS: ESCITALOPRAM 10 MG TABLET PO SCH (10:47)
[2020-10-15] MEDS: NYSTATIN 500,000 UNIT/5 ML UDCUP SWISH/SWAL SCH ×4 (10:47→22:16)
[2020-10-15] MEDS: NICOTINE 14 MG/24 HR PATCH TRANSDERM SCH (10:48)
[2020-10-15] MEDS: PANTOPRAZOLE 40 MG TABLET PO SCH (10:48)
[2020-10-15] MEDS: NEBIVOLOL 5 MG TABLET PO SCH (10:48)
[2020-10-15] MEDS: LEVOTHYROXINE 50 MCG TABLET PO SCH (10:48)
[2020-10-15] MEDS: amLODIPine 5 MG TABLET PO SCH (10:48)
[2020-10-15] MEDS: CHOLESTYRAMINE 4 GM PACK PO SCH (10:49)
[2020-10-15] MEDS: methylPREDNISolone SOD SUC 40 MG/1 ML VIAL IV SCH ×2 (10:50→22:15)
[2020-10-15] MEDS: ENOXAPARIN 40 MG/0.4 ML SYRINGE SUBCUT SCH (10:50)
[2020-10-15] MEDS: FUROSEMIDE 20 MG TABLET PO SCH ×2 (10:54→12:17)
[2020-10-15] MEDS: AZELASTINE NASAL 137 MCG/SPRAY 30 ML BOTTLE BOTH NARES SCH (10:57)
[2020-10-15] MEDS: ZINC OXIDE PASTE 113 GM TUBE TOP SCH ×2 (10:57→22:16)
[2020-10-15] MEDS: DESVENLAFAXINE 50 MG TABLET PO SCH (22:16)
[2020-10-15] MEDS: ALPRAZolam 0.25 MG TABLET PO PRN (22:16)
[2020-10-16] MEDS: MEROPENEM 500 MG in SODIUM CHLORIDE 0.9% 100 ML IV SCH ×4 (04:17→21:46)
[2020-10-16] MEDS: ACETYLCYSTEINE 20% 800 MG/4 ML VIAL RESP TX SCH ×3 (07:18→13:14)
[2020-10-16] MEDS: ALBUTEROL/IPRATROPIUM 3 ML NEB RESP TX SCH ×4 (07:18→20:10)
[2020-10-16] MEDS: BUDESONIDE 0.5 MG/2 ML NEB RESP TX SCH ×2 (07:18→20:10)
[2020-10-16] MEDS: ARFORMOTEROL 15 MCG/2 ML NEB RESP TX SCH (07:18)
[2020-10-16] MEDS ORDERED: cloNIDine 0.1 MG TABLET PO PRN (08:23)
[2020-10-16] MEDS ORDERED: cloNIDine 0.1 MG TABLET PO ONE (09:00)
[2020-10-16] MEDS: CHOLESTYRAMINE 4 GM PACK PO SCH (10:34)
[2020-10-16] MEDS: POTASSIUM CHLORIDE 20 MEQ TABLET PO SCH (10:35)
[2020-10-16] MEDS: hydroCHLOROthiazide 12.5 MG CAPSULE PO SCH (10:35)
[2020-10-16] MEDS: NICOTINE 14 MG/24 HR PATCH TRANSDERM SCH (10:35)
[2020-10-16] MEDS: ASPIRIN 325 MG TABLET PO SCH (10:35)
[2020-10-16] MEDS: ESCITALOPRAM 10 MG TABLET PO SCH (10:36)
[2020-10-16] MEDS: THEOPHYLLINE ER 300 MG TABLET PO SCH ×2 (10:36→16:49)
[2020-10-16] MEDS: NEBIVOLOL 5 MG TABLET PO SCH (10:37)
[2020-10-16] MEDS: PANTOPRAZOLE 40 MG TABLET PO SCH (10:37)
[2020-10-16] MEDS: MONTELUKAST 10 MG TABLET PO SCH ×2 (10:37→20:30)
[2020-10-16] MEDS: amLODIPine 5 MG TABLET PO SCH (10:37)
[2020-10-16] MEDS: LEVOTHYROXINE 50 MCG TABLET PO SCH (10:37)
[2020-10-16] MEDS: ATORVASTATIN 10 MG TABLET PO SCH (10:37)
[2020-10-16] MEDS: FUROSEMIDE 20 MG TABLET PO SCH (10:38)
[2020-10-16] MEDS: methylPREDNISolone SOD SUC 40 MG/1 ML VIAL IV SCH ×2 (10:39→20:31)
[2020-10-16] MEDS: NYSTATIN 500,000 UNIT/5 ML UDCUP SWISH/SWAL SCH ×4 (10:39→20:30)
[2020-10-16] MEDS: ENOXAPARIN 40 MG/0.4 ML SYRINGE SUBCUT SCH (10:40)
[2020-10-16] MEDS: ZINC OXIDE PASTE 113 GM TUBE TOP SCH ×2 (10:41→20:31)
[2020-10-16] MEDS: DOCUSATE SODIUM 100 MG CAPSULE PO SCH ×2 (10:41→20:30)
[2020-10-16] MEDS: AZELASTINE NASAL 137 MCG/SPRAY 30 ML BOTTLE BOTH NARES SCH (10:42)
[2020-10-16] MEDS: DESVENLAFAXINE 50 MG TABLET PO SCH (20:30)
[2020-10-16] MEDS: ALPRAZolam 0.25 MG TABLET PO PRN (20:48)
[2020-10-17] MEDS: ARFORMOTEROL 15 MCG/2 ML NEB RESP TX SCH ×2 (01:10→07:05)
[2020-10-17] MEDS: ACETYLCYSTEINE 20% 800 MG/4 ML VIAL RESP TX SCH ×3 (01:10→14:05)
[2020-10-17] MEDS: ALBUTEROL/IPRATROPIUM 3 ML NEB RESP TX SCH ×3 (01:10→14:05)
[2020-10-17] MEDS: MEROPENEM 500 MG in SODIUM CHLORIDE 0.9% 100 ML IV SCH ×2 (02:50→11:15)
[2020-10-17 06:11] LABS: Basophils % 0.2 % (0.0-0.8); Hematocrit 36.8 VOL% (35.7-47.0); Hemoglobin 11.4 GM/DL (12.0-16.0); Immature Granulocytes % 2.9 %; Immature Granulocytes Absolute 0.38 #; Lymphocytes # 0.4 10*3/uL (1.4-4.0); Lymphocytes % 2.7 % (21.3-54.2); Mean Corpuscular Volume 88.7 FL (87-102); Monocytes % 2.3 % (1.7-12.7); Neutrophils % 91.9 % (38.7-73.9); Platelet Count 202 T/CUMM (130-400); Red Blood Count 4.15 MC/CUMM (3.8-5.5); Red Cell Distribution Width 13.6 % (9.3-17.3); White Blood Count 13.1 T/CUMM (4-12)
[2020-10-17 06:23] LABS: Band Neutrophils 1 % (0-10); Lymphocytes 2 % (20-55); Platelet Estimate Normal; Segmented Neutrophils 95 % (50-85); Total Cells Counted 100
[2020-10-17 06:27] LABS: Osmolality,Calculated 278.5 MOS/KG (273-304); Potassium 3.2 MMOL/L (3.5-5.1)
[2020-10-17] MEDS: BUDESONIDE 0.5 MG/2 ML NEB RESP TX SCH (07:05)
[2020-10-17] MEDS ORDERED: GLUCAGON 1 MG VIAL IM PRN (08:34)
[2020-10-17] MEDS ORDERED: DEXTROSE 50% 25 GM/50 ML VIAL IV PRN (08:34)
[2020-10-17] MEDS ORDERED: methylPREDNISolone SOD SUC 40 MG/1 ML VIAL IV SCH (09:00)
[2020-10-17] MEDS: NYSTATIN 500,000 UNIT/5 ML UDCUP SWISH/SWAL SCH (11:01)
[2020-10-17] MEDS: ATORVASTATIN 10 MG TABLET PO SCH (11:01)
[2020-10-17] MEDS: ESCITALOPRAM 10 MG TABLET PO SCH (11:01)
[2020-10-17] MEDS: DOCUSATE SODIUM 100 MG CAPSULE PO SCH (11:01)
[2020-10-17] MEDS: NEBIVOLOL 5 MG TABLET PO SCH (11:01)
[2020-10-17] MEDS: ASPIRIN 325 MG TABLET PO SCH (11:02)
[2020-10-17] MEDS: hydroCHLOROthiazide 12.5 MG CAPSULE PO SCH (11:02)
[2020-10-17] MEDS: FUROSEMIDE 20 MG TABLET PO SCH (11:02)
[2020-10-17] MEDS: CHOLESTYRAMINE 4 GM PACK PO SCH (11:02)
[2020-10-17] MEDS: PANTOPRAZOLE 40 MG TABLET PO SCH (11:02)
[2020-10-17] MEDS: NICOTINE 14 MG/24 HR PATCH TRANSDERM SCH (11:03)
[2020-10-17] MEDS: ENOXAPARIN 40 MG/0.4 ML SYRINGE SUBCUT SCH (11:03)
[2020-10-17] MEDS: LEVOTHYROXINE 50 MCG TABLET PO SCH (11:04)
[2020-10-17] MEDS: MONTELUKAST 10 MG TABLET PO SCH (11:05)
[2020-10-17] MEDS: AZELASTINE NASAL 137 MCG/SPRAY 30 ML BOTTLE BOTH NARES SCH (11:05)
[2020-10-17] MEDS: THEOPHYLLINE ER 300 MG TABLET PO SCH (11:10)
[2020-10-17] MEDS: amLODIPine 5 MG TABLET PO SCH (11:10)
[2020-10-17] MEDS: POTASSIUM CHLORIDE 20 MEQ TABLET PO SCH (11:11)
[2020-10-17] MEDS: ZINC OXIDE PASTE 113 GM TUBE TOP SCH (11:15)
[2020-10-17 11:38] VITALS: BP 155/97
[2020-10-17] MEDS ORDERED: DESVENLAFAXINE 50 MG TABLET PO SCH (21:00)
== END 2020-10-17 17:01 | disposition home health service (06) | DRG 190 ==
LOC: EDBD → N.ED 12:10 → N.EDINP 16:38 → N.5E 18:30 → N.OB 10-06 23:46 → N.5E 10-10 16:28
PROVIDERS: ADMIT Family Medicine; ATTEND Family Medicine